=== PATIENT | male | born 1965 | race Caucasian/White ===

== ENCOUNTER → 2016-04-26 | Outpatient (CLI) | payer OTHER ==
--- NOTE | 2016-04-26 18:15 | DX ---
Cervical Spine - 4 views Indication: Pain. Evaluate for instability. Technique: Upright AP and lateral views in the neutral, flexed, and extended position. Comparison: None Findings: Normal range of motion with flexion and extension maneuvers. Mild to moderate degenerative disk disease extends from C2-C3 to C7-T1. The worst degree of disk disease is present at the C5-C6 l evel evidenced by joint space narrowing and anterior marginal osteophytes. Vertebral soft tissues are normal. Lung apices are clear. Impression: 1. No instability. 2. [id number] multilevel degenerative disk disease, worse at the C5-C6 level.
== END ==
LOC: CIMAGING 10:40
PROVIDERS: ATTEND Pain Medicine Interventional Pain Medicine
DX: M54.2 Cervicalgia (principal); M50.322 Other cervical disc degeneration at C5-C6 level
CPT/HCPCS: 72050-PO

== ENCOUNTER → 2017-10-28 | Outpatient (CLI) | payer OTHER | LOC: CIMAGING 08:54 | PROVIDERS: ATTEND Clinical Nurse Specialist | DX: M51.36 Other intervertebral disc degeneration, lumbar region (principal); M51.37 Other intervertebral disc degeneration, lumbosacral region; M41.86 Other forms of scoliosis, lumbar region | CPT/HCPCS: 72114-PO ==

== ENCOUNTER → 2018-07-26 | Outpatient (CLI) | payer OTHER | LOC: FIMAGING 18:05 ==